=== PATIENT | female | born 1930 | race Caucasian/White ===

== ENCOUNTER 2020-12-22 11:29 | Day surgery (SDC) | payer OTHER ==
[~2020-12-22] VITALS: Ht 165.1 cm; Wt 63.2 kg
[~2020-12-22 11:29] MED LIST: ACET325 PO; AMLO5 PO; ASPI325 PO; ASPI81EC PO; Amlodipine Bes2.5 MG PO; Aspirin EC81 MG PO; CALCAVITDA PO; CHOL10002 PO; ESTER C; FISH OIL 1,2001 EAC7 PO; FISH1000 PO; HYDACE5 PO; HYDCHL25 PO; K-Phos Origina500 MG PO; LIDO5TP TOP; LISHYD2025 PO; LISI10 PO; LISI20 PO; LORA.5 PO; MELO7.5 PO; METO100ER PO; OMEP20ER PO; PRAV20 PO; PRAVACHOL; Pravachol40 MG PO; Super B Comple150 MG PO; TRAM50 PO; UNK BP MED; VITAMIN D325 MC3 PO; VOLTAREN ARTHRI20 GM; Vitamin B-Comp1 EACH PO
--- NOTE | 2020-12-22 14:22 | NUR ---
12/22/20 1422 Steve Knox SMALL, RAISED, SOFT BULGE ON THE INJECTION SITE. DR. MARTINEZ ASSESSED THE SITE PRIOR TO DISCHARGE. DR. MARTINEZ OK WITH IT AND IS OK TO DISCHARGE PT. DR. MARTINEZ MENTIONED TO PT, THERE WILL BE BRUISING ON THE INJECTION SITE. PT WAS ENCOURAGED TO CALL DR. MARTINEZ IF SHE HAS ANY PROBLEMS OR CONCERNS. PT AWAKE, ALERT ORIENTED. PT DENEID ANY NEW PAIN ON THE INJECTION SITE. THE RAISED, BULGE AREA IS ABOUT THE SIZE OF A QUARTER AND IS SOFT TO TOUCH. NO REDNESS OR BLEEDING ON THE INJECTION SITE. BANDAID IS INTACT. PT ENCOURAGED TO USE WARM/COLD PACK COMPRESS AT HOME.
== END 2020-12-22 12:50 | disposition home or self-care (01) ==
LOC: ORSCSDS 11:29
PROVIDERS: Anesthesiology
PROC: 3E0R33Z Introduction of Anti-inflammatory into Spinal Canal, Percutaneous Approach (ICD-10-PCS; principal; 2020-12-22 12:30)
DX: M51.16 Intervertebral disc disorders with radiculopathy, lumbar region (principal); M54.5 Low back pain; I10 Essential (primary) hypertension; E78.00 Pure hypercholesterolemia, unspecified; K21.9 Gastro-esophageal reflux disease without esophagitis; Z79.82 Long term (current) use of aspirin; Z79.899 Other long term (current) drug therapy
CPT/HCPCS: J1040

== ENCOUNTER 2021-02-13 19:10 | Inpatient (IN) | payer OTHER ==
[~2021-02-13] VITALS: Ht 167.6 cm; Wt 63.4 kg
[2021-02-13] MEDS ORDERED: METO100ER PO (19:33)
[2021-02-13] MEDS ORDERED: Lisinopril-Hct1 EAC4 PO (19:33)
[2021-02-13] MEDS ORDERED: PRAVASTATIN SOD40 MG PO (19:33)
[2021-02-13] MEDS ORDERED: HYDCHL25 PO (19:34)
[2021-02-13] MEDS ORDERED: AMLODIPINE BES2.5 MG PO (19:34)
[2021-02-13] MEDS ORDERED: Aspirin EC81 MG PO (19:34)
[2021-02-13] MEDS ORDERED: OMEP20ER PO (19:35)
[2021-02-13 20:10] LABS: BASOPHILS ABSOLUTE AUTO 0.05 K/mm3 (0.00-0.23); BASOPHILS PERCENT AUTO 1 % (0-2); EOSINOPHILS ABSOLUTE AUTO 0.21 K/mm3 (0.00-0.68); EOSINOPHILS PERCENT AUTO 2 % (0-6); Hematocrit 36.1 % (33.0-51.0); Hemoglobin 12.3 g/dL (11.5-16.0); IMMATURE GRAN ABSOLUTE AUTO 0.04 K/mm3 (0.00-0.10); IMMATURE GRAN PERCENT AUTO 1 % (0-1); LYMPHOCYTES ABSOLUTE AUTO 1.78 K/mm3 (0.84-5.20); LYMPHOCYTES PERCENT AUTO 21 % (21-46); MONOCYTES ABSOLUTE AUTO 0.58 K/mm3 (0.16-1.47); MONOCYTES PERCENT AUTO 7 % (4-13); Mean Corpuscular HGB 29.3 pg (26.0-34.0); Mean Corpuscular HGB Conc 34.1 g/dL (31.5-36.5); Mean Corpuscular Volume 86 fL (80-100); Mean Platelet Volume 9.8 fL (9.1-12.4); NEUTROPHILS ABSOLUTE AUTO 5.98 K/mm3 (1.96-9.15); NEUTROPHILS PERCENT AUTO 69 % (41-73); Platelet Count 213 K/mm3 (150-400); RDW Coefficient Variation 15.1 % (11.7-14.2); RDW Standard Deviation 47.4 fL (35.1-46.3); White Blood Cell Count 8.64 K/mm3 (4.00-11.30)
[2021-02-13 20:32] LABS: Alanine Aminotransfer (ALT/SGP 20 U/L (12-78); Albumin, Blood 3.6 g/dL (3.4-5.0); Albumin/Globulin Ratio 1.1 (0.8-1.8); Alk Phos 64 U/L (50-136); Anion Gap 7 mmol/L (6-16); Aspartate Aminotrans (AST/SGOT 17 U/L (12-37); Bilirubin, Total 0.6 mg/dL (0.1-1.0); Blood Urea Nitrogen 23 mg/dL (8-24); Bun/Creatinine Ratio 19.8 (12.0-20.0); CO2, Blood 25 mmol/L (21-32); Calcium, Blood 9.2 mg/dL (8.5-10.1); Chloride, Blood 109 mmol/L (98-108); Creatinine, Blood 1.16 mg/dL (0.40-1.00); Globulin, Blood 3.2 g/dL (2.2-4.0); Glomerular Filtration Rate 47 (60-); Glucose, Blood 127 mg/dL (70-99); Potassium, Blood 3.2 mmol/L (3.5-5.5); Sodium, Blood 141 mmol/L (136-145); Total Protein, Blood 6.8 g/dL (6.4-8.2); Troponin I <0.015 ng/mL (0.000-0.040)
[2021-02-13 21:41] LABS: Source, Urine Voided
[2021-02-13 21:44] LABS: Bilirubin, Urine Neg (Neg); Blood, Urine 1+ (Neg); Glucose Qualitative, Urine Neg (Neg); Ketones, Urine Neg (Neg); Leukocyte Esterase, Urine 3+ (Neg); Nitrite, Urine Neg (Neg); Protein, Urine 1+ (Neg); Specific Gravity, Urine 1.015 (1.003-1.022); Urobilinogen, Urine NORM (Normal)
[2021-02-13 21:49] LABS: Appearance, Urine Clear (Clear); Color, Urine Yellow (P-Yellow)
[2021-02-13 21:51] LABS: Bacteria Many /hpf; Red Blood Cells, Urine 0-2 /hpf (0-2); Squamous Epithelial Cells Few /hpf (Few); White Blood Cells, Urine 50-100 /hpf (0-5)
[2021-02-13] MEDS ORDERED: LOSA50 PO (22:16)
[2021-02-13] MEDS ORDERED: POTCHL20ER PO (22:17)
[2021-02-13 23:23] LABS: CPK Creatine Kinase 152 U/L (26-193)
--- NOTE | 2021-02-13 23:44 | NUR ---
Transfer report from Judith COELHO RN on Elderly Female with fall at home with rt hip pain being admitted obs status full code. PT lives alone does use FWW but does not usually fall. UA shows UTI rocephin given in ER. RT hip xray donein ER head CT. PT has Sister Morelia who brought to ER from [place]. Await admission.
--- NOTE | 2021-02-14 04:49 | NUR ---
elderly Female brought into ER by Sister Jana after fall with rt posterior hip pain. PT is weak unsteady & has UTI with C & S pending. Up to BSC with 1 to 2 assist FWW gaitbelt . PT lives alone has life alert button. Poor Historian, PT had 1st covid vaccine several weeks ago per report from PT. Fall precautions PT able to communicate. At times PT speaks haltingly, loses train of thought. Fluid intake poor urine has sediment. Rocephin given in ER. Medicating for pain with tylenol.
[2021-02-14 05:03] LABS: Bun/Creatinine Ratio 16.8 (12.0-20.0); Calcium, Blood 8.9 mg/dL (8.5-10.1); Creatinine, Blood 1.07 mg/dL (0.40-1.00); Potassium, Blood 3.5 mmol/L (3.5-5.5)
--- NOTE | 2021-02-14 16:49 | NUR ---
PATIENT A/OX4, DOES HAVE SOME FLIGHT OF IDEAS. 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 UP WITH FWW, GB AND 2 ASSIST. NEEDS ASSISTANCE WITH MEALS, DIFFICULTY HOLDING UTENCILS. ROCEPHIN TO TREAT UTI, PATIENT CONTINENT AND UP TO BSC. LARGE BRUISE TO L BUTTOCKS, OTHERWISE SKIN INTACT. LUNGS CLEAR, ON RA. PT/OT RECOMMENDING SNF. PATIENT IS COOPERATIVE WITH CARE AND ABLE TO MAKE NEEDS KNOWN.
--- NOTE | 2021-02-14 18:09 | NUR ---
Spiritual care note: Mrs. Lomas is pleasant and talkative. She lives alone. No family local. She appears frail. She allowed me to pray and offer spiritual senior counsel commercial to good effect. she hopes to return home. When asked if she gets lonely, she said she has people she can call. Dtrs live in [place].Slight confusion, but overall, she is personable and smiles easily. We had a good rapport and I will remain available.
--- NOTE | 2021-02-15 04:21 | NUR ---
elderly Female with fall at home & chronic back pain was admitted post fall & had head ct & rt hip xray neg for rx. She has large bruise lt hip. Alert confused set off bed alarm multiple times does not redirect well. HAd Head MRI yesterday which showed stroke. PT having balance & fine motor problems. She has unsteady gait & attempts multiple times to ambulate unassist. PT getting TX for UTI with rocephin. Appetite poor fluid intake poor. Offered supplements & fed magic cup with meds & applesauce. Moved PT to room 325 due to high fall risk & unable to safely redirect not to get up OOB unassisted. Room transfer report to Elissa BRANDT who assumed care. PT also removed her IV.
--- NOTE | 2021-02-15 04:56 | NUR ---
AWARE OF CBG 55. 1 AMP D50 ORDERED W/CBG'S RX'D Q1H UNTIL DAY HOSPITALIST REEVALUATION.
--- NOTE | 2021-02-15 05:04 | NUR ---
REPORT RECIEVED FROM ARTURO NELSON AT 0440. PT T/F'D TO ROOM 352 AT 0420 VIA BED AND WAS ORIENTED TO NEW ROOM. BED ALARM ON AND CALL LIGHT IN REACH. SHE DENIED PAIN/COMPLAINTS UPON T/F. THIS RN AGREES TO PREVIOUS NURSE'S ASSESSMENT FINDINGS. VSS/AFEBRILE. WCTM AND REPORT TO DAY RN.
[2021-02-15 05:33] LABS: CHOL/HDL RATIO 2.5; Cholesterol 129 mg/dL (50-200); HDL Cholesterol 52 mg/dL (>39); LDL/HDL RATIO 1.2; Low Density Lipoprotein Chol 61 mg/dL (0-110); Triglycerides 79 mg/dL (30-160); Very Low Density Lipoprot Chol 15 mg/dL (6-32)
--- NOTE | 2021-02-15 19:25 | NUR ---
SHIFT SUMMARY PATIENT DENIES PAIN, NAUSEA, AND SHORTNESS OF BREATH. PATIENT UP SBA W/FWW. PATIETN EATING AND DRINKING WELL. TENTATIVE SNF DISCHARGE. PATIENT PULLED HER IV. NO IV ACCESS ORDER GIVEN. PATIENT VERY IMPULSIVE AND GETTING OUT OF BED AND CHAIR FREQUENTLY TODAY. BED ALARM, CHAIR ALARM, AND CAMERA ON. PATIENT HAD A FALL THIS AFTERNOON WITNESSED BY STAFF. PATIENT HIT THE BACK OF HER HEAD ON THE SINK. DR. JUAREZ CALLED. DR. JUAREZ ASSESSED PATIENT AT BEDSIDE. HEAD CT AND CXR ORDERED. PATIENT GIVEN ICEPACK. PATIENT HAD DINNER AND CHATTED WITH VISITING FRIEND.
--- NOTE | 2021-02-16 06:34 | NUR ---
SHIFT SUMMARY PATIENT ALERT AND ORIENTED X2-3. IS PLEASANT BUT CAN BE IMPULSIVE WHEN SHE THINKS SHE NEEDS TO DO SOMETHING. ALTHOUGH, SHE CAN BE REDIRECTED FAIRLY EASILY. SHE SLEPT WELL OVERNIGHT AND HAD MINIMAL NEEDS. BED IN LOWEST POSITION WITH WHEELS LOCKED AND ALARM ON. CALL LIGHT WITHIN REACH. REPORT GIVEN TO ONCOMING RN.
--- NOTE | 2021-02-16 16:52 | NUR ---
PT AOX2 AND COOPERATIVE OF CARE. PT IS IMROVING AND NOT IMPULSIVE YESTERDAY. PT IS TRYING TO USE CALL LIGHT AND PHONE APPROPRIATELY AND HAS REQUESTED HELP FOR THIS A FEW TIMES. PT HAS BEEN UP IN CHAIR FOR MEALS AND HAS TOLERATED THIS WELL. CALL LIGHT IS WITHIN REACH AND BED ALARM IS IN PLACE WILL CONTINUE TO MONITOR.
--- NOTE | 2021-02-17 07:10 | NUR ---
SHIFT SUMMARY PATIENT ALERT AND ORIENTED X3. HAD NO COMPLAINTS OF PAIN OR SHORTNESS OF BREATH. SLEPT VERY WELL OVERNIGHT. BED IN LOWEST POSITION WITH WHEELS LOCKED AND ALARM ON. CALL LIGHT WITHIN REACH. REPORT GIVEN TO ONCOMING RN.
[2021-02-17 11:53] LABS: BASOPHILS ABSOLUTE AUTO 0.05 K/mm3 (0.00-0.23); BASOPHILS PERCENT AUTO 1 % (0-2); EOSINOPHILS ABSOLUTE AUTO 0.28 K/mm3 (0.00-0.68); EOSINOPHILS PERCENT AUTO 3 % (0-6); Hematocrit 39.8 % (33.0-51.0); Hemoglobin 13.3 g/dL (11.5-16.0); IMMATURE GRAN ABSOLUTE AUTO 0.04 K/mm3 (0.00-0.10); IMMATURE GRAN PERCENT AUTO 1 % (0-1); LYMPHOCYTES ABSOLUTE AUTO 1.96 K/mm3 (0.84-5.20); LYMPHOCYTES PERCENT AUTO 23 % (21-46); MONOCYTES PERCENT AUTO 8 % (4-13); Mean Corpuscular HGB 29.1 pg (26.0-34.0); Mean Corpuscular HGB Conc 33.4 g/dL (31.5-36.5); Mean Corpuscular Volume 87 fL (80-100); Mean Platelet Volume 9.5 fL (9.1-12.4); NEUTROPHILS PERCENT AUTO 65 % (41-73); Platelet Count 229 K/mm3 (150-400); RDW Standard Deviation 47.7 fL (35.1-46.3); Red Blood Cell Count 4.57 M/mm3 (3.80-5.20); White Blood Cell Count 8.73 K/mm3 (4.00-11.30)
[2021-02-17 12:13] LABS: Bun/Creatinine Ratio 18.5 (12.0-20.0); Calcium, Blood 9.3 mg/dL (8.5-10.1); Creatinine, Blood 1.24 mg/dL (0.40-1.00); Potassium, Blood 3.4 mmol/L (3.5-5.5)
--- NOTE | 2021-02-17 17:32 | NUR ---
PT AOX3 AND COOPERATIVE OF CARE. PT HAS BEEN LESS IMPULSIVE AND IS USING CALL LIGHT. PT HAS PAIN L LOWER RIB AREA AND LIDOCAINE PATCH WAS APPLIED. PT HAS BEEN DOING WELL A ONE ASSIST WITH GAITBELT AND WALKER. PT HAS NOT HAD A BM IN THE LAST FEW DAY AND WAS TREATED PER EMAR. PT'S SYSTOLIC AT START OF SHIFT WAS 98 AND THEN WAS ONLY UP TO 102.DR DARLING WAS NOTIFIED AND MADE CHANGES TO EMAR. NO DISTRESS NOTED AT THIS TIME WILL CONTINUE TO MONITOR.
[2021-02-18 05:33] LABS: BASOPHILS ABSOLUTE AUTO 0.04 K/mm3 (0.00-0.23); BASOPHILS PERCENT AUTO 1 % (0-2); EOSINOPHILS ABSOLUTE AUTO 0.26 K/mm3 (0.00-0.68); EOSINOPHILS PERCENT AUTO 3 % (0-6); Hematocrit 34.8 % (33.0-51.0); Hemoglobin 11.7 g/dL (11.5-16.0); IMMATURE GRAN ABSOLUTE AUTO 0.03 K/mm3 (0.00-0.10); IMMATURE GRAN PERCENT AUTO 0 % (0-1); LYMPHOCYTES ABSOLUTE AUTO 1.48 K/mm3 (0.84-5.20); LYMPHOCYTES PERCENT AUTO 19 % (21-46); MONOCYTES ABSOLUTE AUTO 0.69 K/mm3 (0.16-1.47); MONOCYTES PERCENT AUTO 9 % (4-13); Mean Corpuscular HGB Conc 33.6 g/dL (31.5-36.5); Mean Corpuscular Volume 86 fL (80-100); Mean Platelet Volume 9.6 fL (9.1-12.4); NEUTROPHILS ABSOLUTE AUTO 5.17 K/mm3 (1.96-9.15); NEUTROPHILS PERCENT AUTO 67 % (41-73); Platelet Count 198 K/mm3 (150-400); RDW Coefficient Variation 14.7 % (11.7-14.2); RDW Standard Deviation 46.5 fL (35.1-46.3); Red Blood Cell Count 4.03 M/mm3 (3.80-5.20); White Blood Cell Count 7.67 K/mm3 (4.00-11.30)
[2021-02-18 06:06] LABS: Bun/Creatinine Ratio 20.6 (12.0-20.0); Calcium, Blood 8.4 mg/dL (8.5-10.1); Creatinine, Blood 1.07 mg/dL (0.40-1.00); Potassium, Blood 3.5 mmol/L (3.5-5.5)
--- NOTE | 2021-02-18 06:36 | NUR ---
SHIFT SUMMARY PT PLEASANT & COPPERATIVE TO CARE. PT SLEPT COMFORTABLY THROUGHOUT THE NIGHT. NO COMPLAINTS OF PAIN. BED ALRAM ON, BED IN LOWEST POSITION, & CALL LIGHT WITHIN REACH. WILL CONTINUE TO MONITOR UNTIL DAY RN ARRIVES.
[2021-02-18] MEDS ORDERED: BISA10S PR (09:15)
[2021-02-18] MEDS ORDERED: ACET325 PO (09:15)
[2021-02-18] MEDS ORDERED: DOCU100 PO (09:16)
[2021-02-18] MEDS ORDERED: SENN187 PO (09:17)
[2021-02-18] MEDS ORDERED: DULCOLAX400 MG/5 M PO (09:17)
[2021-02-18] MEDS ORDERED: LIDOCAINE1 EAC1 TOP (09:17)
[2021-02-18] MEDS ORDERED: TRAM50 PO (09:18)
[2021-02-18] MEDS ORDERED: VISBIOME 112.51 EACH PO (09:18)
[2021-02-18 10:29] LABS: Influenza A, PCR NEGATIVE (NEGATIVE); Influenza B, PCR NEGATIVE (NEGATIVE); Resp Syncytial Virus, PCR NEGATIVE (NEGATIVE); SARS-Cov-2 (COVID-19) PCR, MMC NEGATIVE (NEGATIVE)
--- NOTE | 2021-02-18 12:43 | NUR ---
DISCHARGE NOTE PATIENT DISCHARGED TO [facility]. PATIENT ALERT AND ORIENTED THIS AM. PATIENT IS A 1 PERSON ASSIST TO TRANSFER. PATIENT UP IN THE CHAIR THIS AM FOR BREAKFAST. PATIENT TRANSFERED VIA WHEELCHAIR BY [facility]. PATIENT BELONGINGS WITH PATIENT UPON DISCHARGE. REPORT CALLED TO DANIEL AT [facility].
--- NOTE | 2021-02-18 13:45 | NUR ---
I HAVE REVIEWED DRYWALL FOREMAN ASSESSMENT, PERFORMED AN ASSESSMENT, AND AGREE WITH THE STUDENT'S FINDINGS.
== END 2021-02-18 12:06 | DRG 64 ==
LOC: ER 19:10 → MEDS 19:11 → ERHOLD 19:11 → MEDS 23:58
PROVIDERS: Emergency Medicine; Internal Medicine; ADMIT Internal Medicine
DX: I63.411 Cerebral infarction due to embolism of right middle cerebral artery (principal); G92 Toxic encephalopathy; N39.0 Urinary tract infection, site not specified; I12.9 Hypertensive chronic kidney disease with stage 1 through stage 4 chronic kidney disease, or unspecified chronic kidney disease; N18.30 Chronic kidney disease, stage 3 unspecified; Z20.822 Contact with and (suspected) exposure to COVID-19; K59.00 Constipation, unspecified; S00.83XA Contusion of other part of head, initial encounter; W19.XXXA Unspecified fall, initial encounter; I65.22 Occlusion and stenosis of left carotid artery; I08.2 Rheumatic disorders of both aortic and tricuspid valves; E78.5 Hyperlipidemia, unspecified; M81.0 Age-related osteoporosis without current pathological fracture; E87.6 Hypokalemia; K27.9 Peptic ulcer, site unspecified, unspecified as acute or chronic, without hemorrhage or perforation; M25.551 Pain in right hip; Z79.82 Long term (current) use of aspirin; Z87.891 Personal history of nicotine dependence
CPT/HCPCS: 0241U; 36415; 70450; 70551; 71045; 73502; 80048; 80053; 80061; 81001; 82550; 84443; 84484; 85025; 87086; 93005; 93010; 93306; 93880; 96365; 96372; 96376; 97110; 97112; 97116; 97162; 97166; 97530; 97535; 99285-25; A9270; A9270-GY; G0378; J0696; J1650; J7050